=== PATIENT | male | born 1955 | race Caucasian/White ===

== ENCOUNTER 2022-09-20 09:26 | Day surgery (SDC) | payer MEDICARE ==
[~2022-09-20] VITALS: Ht 182.9 cm; Wt 117.9 kg
[2022-09-20] VITALS (11 sets, daily range): BP systolic 137–172; BP diastolic 81–101
[~2022-09-20 09:26] MED LIST: DUPI200P SQ; famotidine 20mg tablet PO ONE; oxymetazoline 15 ML nasal spray NS ONE; ringers solution, lacted 1,000 ML IV SCH; tranexamic acid inj. 1,000 MG in normal saline IV soln 100ML IV ONE
[2022-09-20] MEDS ORDERED: morphine 4 MG/ML inj SYRINge IV PRN (10:35)
[2022-09-20] MEDS ORDERED: meperidine/PF 25mg/ml syringe IV PRN ×3 (10:35)
[2022-09-20] MEDS ORDERED: proCHLORperazine 10 MG/2 ml inj IV PRN (10:35)
[2022-09-20] MEDS ORDERED: ondansetron/PF 4mg/2ml inj IV PRN (10:35)
[2022-09-20] MEDS ORDERED: morphine 2 MG/ML inj. syringe IV PRN (10:35)
[2022-09-20] MEDS ORDERED: ringers solution, lacted 1,000 ML IV SCH (10:35)
[2022-09-20] MEDS ORDERED: LIDOcaine 1% W/epiNEPHrine 1:100,000 20ml vial ONE (12:34)
[2022-09-20] MEDS ORDERED: triamcinolone acetonide 40mg/ml inj ONE (12:34)
[2022-09-20] MEDS ORDERED: epiNEPHrine 1 mg/ml inj ONE ×2 (12:34→14:33)
[2022-09-20] MEDS ORDERED: mupirocin 2% ointment 22GM ONE (12:34)
[2022-09-20] MEDS ORDERED: cocaine 4% topical solution 4ml bottle ONE (12:34)
[2022-09-20] MEDS ORDERED: oxymetazoline 15 ML nasal spray NS ONE (12:35)
[2022-09-20] MEDS ORDERED: tranexamic acid 100mg/ml inj. ONE (12:35)
[2022-09-20] MEDS ORDERED: fentaNYL/PF 50MCG/1 ML 2ML syringe ONE (13:13)
[2022-09-20] MEDS ORDERED: midazolam 1 mg/ML 2ml injection ONE (13:14)
[2022-09-20] MEDS ORDERED: cefTAZidime 1gm inj ONE (13:37)
[2022-09-20] MEDS ORDERED: dexamethasone sod phosphate 4mg/ml inj. ONE (14:05)
[2022-09-20] MEDS ORDERED: propofol inj 20 ML IV ONE (14:05)
[2022-09-20] MEDS ORDERED: ondansetron/PF 4mg/2ml inj ONE (14:05)
[2022-09-20] MEDS ORDERED: acetaminophen 1,000mg/100ml IV 100 ML IV ONE (14:12)
[2022-09-20] MEDS ORDERED: methylPREDNISolone acetate 80mg/ml inj**IM only ONE (14:37)
--- NOTE | 2022-09-20 15:05 | NUR ---
Received from OR via [facility], accompanied by Anesthesiologist DR. PINK and report given. PATIENT A&OX4, DENIES PAIN, V/S WNL, NEUROVASCULAR CHECKS INTACT, SCD ON, NASAL COTTONOIDS IN BILATERAL SINUS W/ NO VISIBLE DRAINAGE SEEN. 20G RUE
[2022-09-20] MEDS ORDERED: salt irrigation nasal spray 45 ML SPRAY NS PRN (16:40)
[2022-09-20] MEDS ORDERED: hydrALAZINE 20mg/ml inj. IV ONE (16:40)
--- NOTE | 2022-09-20 17:15 | NUR ---
PT DID WELL, HAD MILDLY ELEVATED BP BUT CAME IN WITH ELEVATED BP WELL, HYDRALAZINE GIVEN-GOOD RESULTS, SEE VS RECORD, MUSTACHE DRSG APPLIED AND DRSG CHANGED NEEDED, DISCUSSED D/C INSTRUCTIONS WITH PT-ALL QUESTIONS, PT TAKEN WITH ALL BELONGINGS TO VEHICLE FOR TRANSPORT HOME.
== END 2022-09-20 17:15 | disposition home or self-care (01) ==
LOC: PAS 09:26
PROVIDERS: ATTEND Otolaryngology
DX: J32.8 Other chronic sinusitis (principal); J33.8 Other polyp of sinus; G47.33 Obstructive sleep apnea (adult) (pediatric); E66.9 Obesity, unspecified; Z68.35 Body mass index [BMI] 35.0-35.9, adult; F41.9 Anxiety disorder, unspecified; Z98.890 Other specified postprocedural states; Z79.899 Other long term (current) drug therapy; Z20.822 Contact with and (suspected) exposure to COVID-19
CPT/HCPCS: 31259; 31267; 31276; 36415; 61782; 82948; 87070; 87075; 93005; A6402; J0131; J0171; J0360; J0713; J1040; J1100; J2250; J2405; J2704; J3010; J3301; J3490; J7030; J7050; J7120; U0003; U0005; Z7506; Z7508; Z7512; 87077; 87186; A4618; A6449; A7000